=== PATIENT | male | born 1960 | race Caucasian/White ===

== ENCOUNTER 2020-04-04 16:31 | Inpatient (IN) | payer OTHER ==
[2020-04-04 20:45] VITALS: BMI 22.1
[2020-04-04] MEDS ORDERED: ONDANSETRON *ODT* 4 MG TABLET SL PRN (21:07)
[2020-04-04] MEDS ORDERED: MAGNESIUM HYDROX 2400MG/30ML ORAL SUSPENSION 30 ML CUP PO PRN (21:07)
[2020-04-04] MEDS ORDERED: MAGNESIUM CITRATE 300 ML BOTTLE PO PRN (21:07)
[2020-04-04] MEDS ORDERED: ACETAMINOPHEN 325 MG TABLET (FP) PO PRN ×2 (21:07)
[2020-04-04] MEDS ORDERED: chlordiazePOXIDE HCL 25 MG CAPSULE PO PRN (21:07)
[2020-04-04] MEDS ORDERED: IBUPROFEN 400 MG TABLET (FP) PO PRN (21:07)
[2020-04-04] MEDS ORDERED: MENTHOL/PHENOL 1 EACH UD MM PRN (21:07)
[2020-04-04] MEDS ORDERED: METHOCARBAMOL 500 MG TABLET PO PRN (21:07)
[2020-04-04] MEDS ORDERED: MAG HYDROX/AL HYDROX/SIMETH 30 ML UNIT-DOSE CUP PO PRN (21:07)
[2020-04-04] MEDS ORDERED: BISMUTH SUBSALICYLATE 524 MG/30 ML UD PO PRN (21:07)
[2020-04-04] MEDS ORDERED: METHADONE HCL 10 MG TABLET (FOR DETOX USE ONLY) PO ONE (22:26)
[2020-04-04] MEDS ORDERED: cloNIDine HCL 0.1 MG TABLET PO PRN (22:26)
[2020-04-04] MEDS: hydrOXYzine PAMOATE 25 MG CAPSULE (FP) PO SCH (23:50)
[2020-04-04] MEDS: THIAMINE HCL 100 MG TABLET (FP) PO SCH (23:50)
[2020-04-04] MEDS: MELATONIN 5 MG TABLETS PO SCH (23:50)
[2020-04-04] MEDS: chlordiazePOXIDE HCL 25 MG CAPSULE PO SCH (23:51)
[2020-04-05] MEDS: chlordiazePOXIDE HCL 25 MG CAPSULE PO SCH (05:40)
[2020-04-05] MEDS: hydrOXYzine PAMOATE 25 MG CAPSULE (FP) PO SCH (05:40)
[2020-04-05] MEDS ORDERED: METHADONE HCL 10 MG TABLET (FOR DETOX USE ONLY) ONE (08:49)
[2020-04-05] MEDS ORDERED: METHADONE HCL 5 MG TABLET (FOR DETOX USE ONLY) ONE (08:49)
[2020-04-05] MEDS ORDERED: ALBUTEROL SO4 0.083% IH SOL 2.5 MG/3 ML VIAL.NEB. NEB PRN (09:40)
[2020-04-05] MEDS ORDERED: ALBUTEROL SO4 HFA INHALER IH PRN (09:40)
[2020-04-05] MEDS ORDERED: METHADONE HCL 10 MG TABLET PO ONE (09:55)
[2020-04-05] MEDS ORDERED: METHADONE (DETOX) 20 MG, METHADONE (DETOX) 5 MG PO ONE (10:00)
[2020-04-05] MEDS ORDERED: METHADONE HCL 10 MG TABLET (FOR DETOX USE ONLY) PO ONE (10:14)
[2020-04-05 10:32] LABS: HEMOGLOBIN 13.1 GM/dL (11.7-16.9); MCH 30.9 pg (25.7-33.7); MCHC 32.6 g/dl (32.0-35.9); MEAN CELL VOLUME 94.8 fl (80-96); MEAN PLT VOLUME 9.6 fl (7.5-11.1); PLATELET COUNT 200 K/MM3 (134-434); RBC 4.22 M/mm3 (4.00-5.60); RDW 14.7 % (11.9-15.9); WHITE BLOOD COUNT 9.5 K/mm3 (4.0-10.0)
[2020-04-05 10:33] LABS: POTASSIUM 3.9 mmol/L (3.5-5.1)
[2020-04-05 10:35] LABS: CALCIUM 8.5 mg/dL (8.5-10.1)
[2020-04-05 10:36] LABS: ALBUMIN 3.7 g/dl (3.4-5.0); BLOOD UREA NITROGEN 18.2 mg/dL (7-18)
[2020-04-05 10:39] LABS: CREATININE 3.3 mg/dL (0.55-1.3)
[2020-04-05 10:40] LABS: BILIRUBIN,TOTAL 0.9 mg/dL (0.2-1)
[2020-04-05 10:41] LABS: TOT PROT 6.8 g/dl (6.4-8.2)
[2020-04-05] MEDS ORDERED: chlordiazePOXIDE HCL 10 MG CAPSULE PO SCH (11:00)
[2020-04-05] MEDS: PRENATAL VITAMINS W/ FOLIC ACID TABLET (FP) PO SCH (11:28)
[2020-04-05] MEDS ORDERED: LORazepam 1 MG TABLET PO PRN (14:49)
[2020-04-05] MEDS: LORazepam 2 MG TABLET PO SCH ×2 (17:28→22:08)
[2020-04-05] MEDS: PRAZOSIN HCL 1 MG CAPSULE PO SCH (22:08)
[2020-04-05] MEDS: risperiDONE 1 MG TABLET PO SCH (22:08)
[2020-04-05] MEDS: THIAMINE HCL 100 MG TABLET (FP) PO SCH (22:08)
[2020-04-05] MEDS: MELATONIN 5 MG TABLETS PO SCH (22:08)
[2020-04-06] MEDS ORDERED: chlordiazePOXIDE HCL 25 MG CAPSULE PO SCH (05:00)
[2020-04-06] MEDS ORDERED: chlordiazePOXIDE HCL 10 MG CAPSULE PO SCH (05:00)
[2020-04-06] MEDS: LORazepam 2 MG TABLET PO SCH ×4 (06:19→22:07)
[2020-04-06] MEDS ORDERED: METHADONE HCL 10 MG TABLET (FOR DETOX USE ONLY) PO ONE (10:00)
[2020-04-06] MEDS ORDERED: FLUoxetine HCL 20 MG CAPSULE PO SCH (10:00)
[2020-04-06 10:09] LABS: POTASSIUM 3.6 mmol/L (3.5-5.1)
[2020-04-06] MEDS: PRENATAL VITAMINS W/ FOLIC ACID TABLET (FP) PO SCH (10:09)
[2020-04-06] MEDS: risperiDONE 1 MG TABLET PO SCH ×2 (10:10→22:07)
[2020-04-06] MEDS: FLUoxetine HCL 20 MG CAPSULE PO SCH (10:10)
[2020-04-06 10:21] LABS: BILIRUBIN,TOTAL 0.5 mg/dL (0.2-1); TOT PROT 6.3 g/dl (6.4-8.2)
[2020-04-06 10:22] LABS: ALBUMIN 3.2 g/dl (3.4-5.0)
[2020-04-06 10:24] LABS: BLOOD UREA NITROGEN 17.6 mg/dL (7-18); CALCIUM 9.3 mg/dL (8.5-10.1)
[2020-04-06 10:25] LABS: CREATININE 1.6 mg/dL (0.55-1.3)
[2020-04-06] MEDS: PRAZOSIN HCL 1 MG CAPSULE PO SCH (22:07)
[2020-04-06] MEDS: MELATONIN 5 MG TABLETS PO SCH (22:07)
[2020-04-06] MEDS: THIAMINE HCL 100 MG TABLET (FP) PO SCH (22:07)
[2020-04-07] MEDS ORDERED: chlordiazePOXIDE HCL 10 MG CAPSULE PO PRN
[2020-04-07] MEDS ORDERED: chlordiazePOXIDE HCL 10 MG CAPSULE PO SCH (05:00)
[2020-04-07] MEDS: LORazepam 1 MG TABLET PO SCH ×4 (06:25→22:11)
[2020-04-07] MEDS ORDERED: METHADONE HCL 10 MG TABLET (FOR DETOX USE ONLY) ONE (08:31)
[2020-04-07] MEDS ORDERED: METHADONE HCL 5 MG TABLET (FOR DETOX USE ONLY) ONE (08:31)
[2020-04-07] MEDS ORDERED: METHADONE (DETOX) 10 MG, METHADONE (DETOX) 5 MG PO ONE (10:00)
[2020-04-07] MEDS: PRENATAL VITAMINS W/ FOLIC ACID TABLET (FP) PO SCH (10:06)
[2020-04-07] MEDS: risperiDONE 1 MG TABLET PO SCH ×2 (10:07→22:11)
[2020-04-07] MEDS: FLUoxetine HCL 20 MG CAPSULE PO SCH (10:07)
[2020-04-07] MEDS: MELATONIN 5 MG TABLETS PO SCH (22:11)
[2020-04-07] MEDS: THIAMINE HCL 100 MG TABLET (FP) PO SCH (22:11)
[2020-04-07] MEDS: PRAZOSIN HCL 1 MG CAPSULE PO SCH (22:11)
[2020-04-08] MEDS ORDERED: LORazepam 0.5 MG TABLET PO PRN
[2020-04-08] MEDS ORDERED: chlordiazePOXIDE HCL 10 MG CAPSULE PO SCH (05:00)
[2020-04-08] MEDS: LORazepam 0.5 MG TABLET PO SCH ×4 (06:16→22:39)
[2020-04-08 09:39] LABS: POTASSIUM 3.9 mmol/L (3.5-5.1)
[2020-04-08 09:44] LABS: BLOOD UREA NITROGEN 12.5 mg/dL (7-18); CALCIUM 9.3 mg/dL (8.5-10.1)
[2020-04-08 09:48] LABS: CREATININE 1.1 mg/dL (0.55-1.3)
[2020-04-08] MEDS ORDERED: METHADONE HCL 10 MG TABLET (FOR DETOX USE ONLY) PO ONE (10:00)
[2020-04-08] MEDS: PRENATAL VITAMINS W/ FOLIC ACID TABLET (FP) PO SCH (10:22)
[2020-04-08] MEDS: FLUoxetine HCL 20 MG CAPSULE PO SCH (10:22)
[2020-04-08] MEDS: risperiDONE 1 MG TABLET PO SCH ×2 (10:22→22:38)
[2020-04-08] MEDS: THIAMINE HCL 100 MG TABLET (FP) PO SCH (22:38)
[2020-04-08] MEDS: PRAZOSIN HCL 1 MG CAPSULE PO SCH (22:38)
[2020-04-08] MEDS: MELATONIN 5 MG TABLETS PO SCH (22:39)
[2020-04-09] MEDS ORDERED: chlordiazePOXIDE HCL 10 MG CAPSULE PO ONE (05:00)
[2020-04-09] MEDS ORDERED: LORazepam 0.5 MG TABLET PO ONE (05:00)
[2020-04-09] MEDS ORDERED: METHADONE HCL 5 MG TABLET (FOR DETOX USE ONLY) PO ONE (06:00)
[2020-04-09 09:19] VITALS: BP 113/76; PULSE 76; TEMP 97.3
[2020-04-09] MEDS: risperiDONE 1 MG TABLET PO SCH (09:55)
[2020-04-09] MEDS: PRENATAL VITAMINS W/ FOLIC ACID TABLET (FP) PO SCH (09:56)
[2020-04-09] MEDS: FLUoxetine HCL 20 MG CAPSULE PO SCH (09:56)
== END 2020-04-09 09:59 | disposition home or self-care (01) | DRG 897 ==
LOC: YASAS 16:31 → Y3N 22:24
PROVIDERS: ADMIT Allergy & Immunology; ATTEND Allergy & Immunology
PROC: HZ2ZZZZ Detoxification Services for Substance Abuse Treatment (ICD-10-PCS; principal; 2020-04-04)
DX: F10.230 Alcohol dependence with withdrawal, uncomplicated (principal); F11.23 Opioid dependence with withdrawal; F20.9 Schizophrenia, unspecified; F19.24 Other psychoactive substance dependence with psychoactive substance-induced mood disorder; F41.9 Anxiety disorder, unspecified; F43.10 Post-traumatic stress disorder, unspecified; F32.9 Major depressive disorder, single episode, unspecified; G47.00 Insomnia, unspecified; J44.9 Chronic obstructive pulmonary disease, unspecified; J45.20 Mild intermittent asthma, uncomplicated; N28.9 Disorder of kidney and ureter, unspecified; Z62.810 Personal history of physical and sexual abuse in childhood; I25.2 Old myocardial infarction; Z86.69 Personal history of other diseases of the nervous system and sense organs; Z91.5 Personal history of self-harm; Z56.0 Unemployment, unspecified; Z59.0 Homelessness
CPT/HCPCS: 36415; 80048; 80053; 85027; 86780; 93005; 93010; C9803; J2794; U0003